=== PATIENT | male | born 1965 | race Asian ===

== ENCOUNTER 2020-09-09 16:20 | Inpatient (IN) | payer OTHER ==
[~2020-09-09] VITALS: Ht 177.8 cm; Wt 90.7 kg
[2020-09-09 16:27] VITALS: BP 149/87
[2020-09-09 17:27] LABS: ABSOLUTE NEUTROPHILS 6.5 thou/uL (1.4-8.2); BASOPHILS 0.3 % (0.0-2.0); EOSINOPHILS 1.4 % (0.0-3.0); HEMATOCRIT 38.1 % (42.0-52.0); HEMOGLOBIN 12.8 gm/dL (14.0-18.0); LYMPHOCYTES 12.2 % (24.0-44.0); MCH 29.1 pg (26.0-34.0); MCHC 33.6 g/dL (28.0-37.0); MCV 86.7 fL (80.0-100.0); MONOCYTES 8.9 % (1.0-8.0); PLATELET COUNT 384 thou/uL (150-400); POLYS 77.2 % (36.0-66.0); RDW 12.7 % (10.5-14.5); WBC 8.4 thou/uL (4.0-11.0)
[2020-09-09 17:35] LABS: ANION GAP 8 mmol/L (7-16); BUN 10 mg/dL (7-18); CALCIUM 7.7 mg/dL (8.5-10.1); CHLORIDE 88 mmol/L (98-107); CO2 25 mmol/L (21-32); CREATININE 0.8 mg/dL (0.7-1.3); GLUCOSE 122 mg/dL (74-106); SODIUM 121 mmol/L (136-145)
[2020-09-09 17:44] LABS: TROPONIN-I <0.06 ng/mL (<0.06)
[2020-09-09 18:33] LABS: URINE BILIRUBIN NEGATIVE (Negative); URINE BLOOD NEGATIVE (Negative); URINE CLARITY CLEAR; URINE COLOR YELLOW; URINE GLUCOSE-RANDOM* NEGATIVE (Negative); URINE KETONES TRACE (Negative); URINE LEUKOCYTES-REFLEX NEGATIVE (Negative); URINE NITRITE-REFLEX NEGATIVE (Negative); URINE PROTEIN (DIPSTICK) NEGATIVE (Negative); URINE SPECIFIC GRAVITY 1.015 (1.005-1.035); URINE UROBILINOGEN 0.2 E.U./dl (0.2-1.0)
[2020-09-09 20:05] VITALS: BP 126/55
[2020-09-09 20:36] VITALS: BP 126/55
[2020-09-09 20:47] VITALS: BP 122/57
--- NOTE | 2020-09-10 04:24 | NUR ---
PT ARRIVED ON UNIT FROM ER AT 2100. COMES IN WITH HYPONATREMIA. AMBULATING TO BATHROOM WITH STANDBY ASSIST. DENIES PAIN, DENIES NAUSEA. RESTING COMFORTABLY. NO NEEDS VOICED. CALL LIGHT WITHIN REACH. FREQUENT OBSERVATION.
[2020-09-10 04:32] LABS: HEMATOCRIT 38.9 % (42.0-52.0); HEMOGLOBIN 13.1 gm/dL (14.0-18.0); MCH 29.6 pg (26.0-34.0); MCHC 33.6 g/dL (28.0-37.0); MCV 87.9 fL (80.0-100.0); PLATELET COUNT 389 thou/uL (150-400); RBC 4.42 mil/uL (4.50-6.00); RDW 12.8 % (10.5-14.5); WBC 6.3 thou/uL (4.0-11.0)
[2020-09-10 04:53] LABS: CREATININE 0.7 mg/dL (0.7-1.3); POTASSIUM 3.5 mmol/L (3.5-5.1)
[2020-09-10 05:17] VITALS: BP 131/74
[2020-09-10 07:25] VITALS: BP 129/77
[2020-09-10 08:36] VITALS: BP 143/88
--- NOTE | 2020-09-10 10:39 | NUR ---
PATIENT'S BROUGHT IN A BAG OF NON-NARCORTIC MEDICINE RETURNED TO [facility].
[2020-09-10 12:45] LABS: ABSOLUTE NEUTROPHILS 3.3 thou/uL (1.4-8.2); NUCLEATED RBCS 1 /100WBC; PLATELET ESTIMATE NORMAL
[2020-09-10 16:00] VITALS: BP 129/78
[2020-09-10] MEDS ORDERED: PEPCID20 MG PO (16:47)
[2020-09-10] MEDS ORDERED: B-125000 MC1 SUBLING (16:50)
[2020-09-10] MEDS ORDERED: FOLIC ACID1 MG PO (16:50)
[2020-09-10] MEDS ORDERED: VITAMIN D3-CAL1 EACH PO (16:51)
[2020-09-10 17:09] VITALS: BP 129/78
--- NOTE | 2020-09-10 18:46 | NUR ---
PT COVID TEST CAME BACK NEGATIVE. NOTIFIED. IM VITAMIN B12 INJECTION GIVEN TO PATIENT BEFORE DISCHARGE. DC IV SOLUTION AND IT TAKEN OUT BY RN PILI. PT'S FAMILY DALTON CALLED FOR PICKKING UP PATIENT:[phone]. DALTON' ARIAN CAME TO THE ED AND PROPERTY CLAIMS MANAGER JESSE WALKED PATIENT DOWN STAIRS. TELE WAS REMOVED BEFORE PATIENT LEFT. MEDICATION AND DISCHARGE EDUCATION GIVEN TO PATIENT AND SIGNED DOCUMENTS IN THE CHART. MEDICATION ORDER GAVE TO PATIENT BUT WITHOUT SIGNED BY DR ROSARIO SINCE OUT OF FLOOR. COPY MADE AND PUT INTO PATIENT'S CHART. PT LEFT FLOOR AROUND 18:35 AND BELONGS WITH PATIENT.
--- NOTE | 2020-09-11 07:12 | EKG ---
[address] [place] [address] ELECTROCARDIOGRAM REPORT Name: HUNG CASTANON Room #: 456-P [facility] IN M.R.#: [id number] Admission: 09/09/20 Attend Phys: Leta Gao Discharge: 09/10/20 Date of : 65 Report #: [id number] [facility] ED Test Date: 2020-09-09 Test Time: 17:32:34 Pat Name: HUNG CASTANON Department: Room: [facility] Gender: M [employer] Manager: munira : 1965 Requested By: Herman Antoine Order Number: [id number] MD: Feliciano Archer Measurements Intervals [place] Rate: 88 P: 27 HI: 194 QRS: -7 QRSD: 112 T: 25 QT: 383 QTc: 464 Interpretive Statements Sinus rhythm Probable left atrial enlargement Inferior infarct, old Minimal ST elevation, anterior leads No previous ECG available for comparison Electronically Signed On 09-11-2020 7:11:48 CDT by Feliciano Archer [email or web address] <ELECTRONICALLY SIGNED> By: Feliciano Archer MD, [facility] 09/11/20 0711 31 31 Feliciano Archer MD, FACC /EPI
--- NOTE | 2020-09-11 07:39 | NUR ---
ORDERS FOR EVAL AND TREAT HOWEVER Pt DISCHARGED FROM HOSPITAL PRIOR TO BEING SEEN
== END 2020-09-10 18:49 | disposition home or self-care (01) | DRG 641 ==
LOC: ER 16:20 → EROBS 19:32 → 4W 20:39
PROVIDERS: Emergency Medicine; Internal Medicine; Nurse Practitioner Family; ADMIT Hospitalist; ATTEND Hospitalist
DX: E87.1 Hypo-osmolality and hyponatremia (principal); J40 Bronchitis, not specified as acute or chronic; I10 Essential (primary) hypertension; E78.5 Hyperlipidemia, unspecified; I25.10 Atherosclerotic heart disease of native coronary artery without angina pectoris; E87.6 Hypokalemia; E66.3 Overweight; E53.8 Deficiency of other specified B group vitamins; Z20.822 Contact with and (suspected) exposure to COVID-19; Z95.5 Presence of coronary angioplasty implant and graft; Z68.28 Body mass index [BMI] 28.0-28.9, adult
CPT/HCPCS: 10045